=== PATIENT | female | born 1975 | race Caucasian/White ===

== ENCOUNTER 2018-11-03 05:45 | Day surgery (SDC) | payer OTHER ==
[~2018-11-03] VITALS: Ht 162.6 cm; Wt 73.5 kg
--- NOTE | ~2018-11-03 | OR ---
[facility] [address], [place] [address] Draft DATE OF OPERATION: 11/03/2018 SURGEON: Amelia Lino DO PREOPERATIVE DIAGNOSES: 1. Abnormal uterine bleeding. 2. Dysmenorrhea. 3. Adenomyosis. POSTOPERATIVE DIAGNOSES: 1. Abnormal uterine bleeding. 2. Dysmenorrhea. 3. Adenomyosis. PROCEDURES PERFORMED: Total laparoscopic hysterectomy, bilateral salpingectomy, cystoscopy. [employer] PROGRAM TEACHER: Dalton Bai MD. ANESTHESIA: General. ESTIMATED BLOOD LOSS: 50 mL. SPECIMEN: Uterus, bilateral fallopian tubes and cervix. FINDINGS: Normal external genitalia, vagina, and cervix. On laparoscopy, normal right upper quadrant and appendix noted. Normal uterus, tubes, and ovaries. Tubes are status post bilateral tubal ligation. At the end of the case, there was a slight amount of oozing on the right that was made hemostatic. On cystoscopy, normal urethra, bladder and bilateral ureteral jets noted. COMPLICATIONS: None. INDICATIONS: PATIENT NAME: LUTHER NIÑO OPERATIVE REPORT DATE OF : 73 REPORT #: [id number] PHYSICIAN: AMELIA LINO DO PCP: TENISHA SERNA PAC REPORT IS CONFIDENTIAL AND NOT TO BE RELEASED WITHOUT AUTHORIZATION [facility] [address] [place], [place] [address] Draft Ms. Niño is a pleasant 43-year-old female with a history of worsening dysmenorrhea and abnormal uterine bleeding. Endometrial biopsy was normal and Pap smear was normal. Ultrasound suggested adenomyosis. Of note, she has a family history of ovarian cancer and underwent BRCA testing that was negative. Recommended total laparoscopic hysterectomy, bilateral salpingectomy and cystoscopy. Risks, benefits, and alternatives were discussed in detail with the patient. The patient understands and wished to proceed with the procedure. TECHNIQUE: The patient was taken to the operating room. A time-out was performed to confirm correct patient and correct procedure. General anesthesia was adequately established. The patient was prepped and draped in dorsal lithotomy position with feet in Yellofin stirrups. ICPs were on and running and no preoperative heparin was given. Preoperative antibiotics were gentamicin 5 mg/kg and clindamycin 900 since the patient had a penicillin allergy. A Cote catheter was inserted. A weighted speculum was placed in the vagina and the anterior lip of the cervix was grasped with single-tooth tenaculum. The cervix was gently dilated using Hegar dilators. A medium VCare uterine manipulator was placed without difficulty. The surgeon's gloves were changed and attention was turned to the abdomen. The base of the umbilicus was infiltrated with 0.25% Marcaine with epinephrine. A 5 mm stab incision was made with an 11 blade knife. A 5 mm trocar was placed with direct visual entry without complication. Pneumoperitoneum was established easily with low opening pressures noted. Survey of the abdomen and pelvis was performed noting a normal right upper quadrant and appendix. A 5 mm assist port was placed on the left under direct visualization, and an 8 mm expanding assist port was placed on the right without difficulty. Attention was then turned to hysterectomy. The left fallopian tube was grasped at the fimbriated end, elevated and divided along the mesosalpinx using LigaSure device. Good hemostasis was appreciated. The fallopian tube was then delivered through the assist port and sent to Pathology for further evaluation. The utero-ovarian ligament was fulgurated and divided on the left. The round ligament was then fulgurated and divided and the leaves of the broad ligament were divided using the LigaSure device. There were very scant adhesions along the bladder from her prior deliveries and these were brought down easily with excellent visualization. The posterior leaf of the broad ligament was brought down past the uterosacral ligament to the midline. The uterine vessels were then identified and they were fulgurated and divided with good hemostasis appreciated. Attention was turned to the right side where the process was repeated. The right fallopian tube was elevated and divided along the mesosalpinx and delivered. The right utero-ovarian ligament and right round ligament were fulgurated and divided. The leaves of the broad ligament were dissected in the same manner and the bladder was pushed well down below the vaginal cup. A small amount of oozing was noted from the right uterine vessels and they were then fulgurated and divided with good hemostasis appreciated. Once dissection was completed, a Sonicision device was selected and used to perform colpotomy starting at the 6 o'clock position. PATIENT NAME: LUTHER NIÑO OPERATIVE REPORT DATE OF : 73 REPORT #: [id number] PHYSICIAN: AMELIA LINO DO PCP: TENISHA SERNA PAC REPORT IS CONFIDENTIAL AND NOT TO BE RELEASED WITHOUT AUTHORIZATION [facility] [address] [place], [place] [address] Draft The green edge of the cup was identified and colpotomy was completed in circumferential manner using the Sonicision device following the edge of the green cup as a guide. The uterus and cervix were then delivered through the vagina. The vagina was stuffed with a wet lap inside of a glove to maintain pneumoperitoneum. A small amount of oozing was noted from the right uterine artery. This was grasped very carefully with the LigaSure device and fulgurated and bleeding ceased. The colpotomy was then repaired using V-Loc suture with an Endo Stitch device. This was passed just medial to the uterosacral ligament on the right with careful attention to incorporate the vaginal epithelium with each bite. The colpotomy was then closed in a running nonlocked suture. The V-Loc stitch was then fell back to the midline of the colpotomy. Good hemostasis and vaginal support were noted. A small amount of oozing was noted on the right just lateral to the uterosacral ligament. Very careful monopolar spot fulguration was performed after identifying the ureter noted to be well away. Evicel was then applied after good hemostasis was appreciated. The pressure was held for 2 minutes and additional Evicel was applied despite this being completely hemostatic. Pneumoperitoneum was reduced for 2 minutes and then the abdomen was reinsufflated. Again, good hemostasis was appreciated. Pneumoperitoneum was then reduced. The trocar sites repaired with 4-0 Vicryl. Attention was then turned to cystoscopy. The Cote catheter was removed. The 70 degree cystoscope was placed in the urethral meatus and advanced under direct visualization into the bladder. Normal bladder was noted with bilateral ureteral jets quickly seen. The cystoscope was withdrawn after the bladder was drained. The Cote catheter was reinserted. The patient was then taken to PACU in good and stable condition. Sponge, needle, instrument count was correct x2 at the end of procedure. Dr. Bai was present and participated in all portions of procedure. DO ROSALINA Mcginnis/LULU /[id number] Copies: ~ PATIENT NAME: LUTHER NIÑO OPERATIVE REPORT DATE OF : 73 REPORT #: [id number] PHYSICIAN: AMELIA LINO DO PCP: TENISHA SERNA PAC REPORT IS CONFIDENTIAL AND NOT TO BE RELEASED WITHOUT AUTHORIZATION
[~2018-11-03 05:45] MED LIST: ALBENZA200 MG PO; METFORMIN HCL500 M1 PO; NORCO 5-325 TA1 EACH PO; OZEMPIC1 MG/0.75 INJ; SPRINTEC1 EACH PO
--- NOTE | 2018-11-03 09:22 | NUR ---
11/03/18 0922 Floridalma Alvarez 0909- PT ARRIVES TO PACU. AROUSABLE TO STIMULI, DOES NOT FOLLOW COMMANDS AT THIS TIME. RESP EVEN AND UNLABORED. OXYGEN SAT HIGH 90'S TO 100% ON 6L VIA MASK. PT FALLS BACK TO SLEEP WHEN NOT BEING TALKED TO. 09- OXYGEN TITRATED OFF. 09- DR. MENDOZA AT THE BEDSIDE TO TALK WITH THE PT.
--- NOTE | 2018-11-03 10:15 | NUR ---
FAMILY AT BEDSIDE. CALL LIGHT WITHIN REACH. CRACKERS AND ICED WATER GIVEN. DICK BALLOON DEFLATED FOR 10 ML FLUID AND DICK IS DC WNL. PATIENT TOLERATES THAT WELL. 100 ML BRIGHT YELLOW URINE NOTED TO OVERNIGHT DICK BAG. PATIENT IS SITTING UP DRINKING AND TOLERATING THAT WELL.
[2018-11-03] MEDS ORDERED: NORCO 5-325 TA1 EACH PO (11:05)
--- NOTE | 2018-11-03 11:10 | NUR ---
PATIENT UP TO THE BATHROOM WITH SPOUSE AND MY STANDBY. PATIENT AMBULATES WELL AND DENIES DIZZINESS. PATIENT VOIDS 600 ML BRIGHT YELLOW URINE AND AMBULATES BACK TO BED. SCDS IN PLACE. MORE ICE CHIPS GIVEN. PATIENT IS EATING CRACKERS AND TOLERATING THAT WELL. FAMILY REMAINS AT THE BEDSIDE.
--- NOTE | 2018-11-03 12:12 | NUR ---
LE 1105: YOGURT, GRANOLA AND FRUIT ORDERED FROM DIETARY FOR PATIENT. 1212: PATIENT EATS AND TOLERATES THAT WELL.
== END 2018-11-03 12:25 | disposition home or self-care (01) ==
LOC: DS 05:45 → OPS 05:45 → DS 06:45 → OPS 06:45
PROVIDERS: Obstetrics & Gynecology
PROC: 0UT94ZZ Resection of Uterus, Percutaneous Endoscopic Approach (ICD-10-PCS; principal; 2018-11-03 06:45)
PROC: 0UT74ZZ Resection of Bilateral Fallopian Tubes, Percutaneous Endoscopic Approach (ICD-10-PCS; 2018-11-03 06:45)
DX: D25.9 Leiomyoma of uterus, unspecified (principal); N83.8 Other noninflammatory disorders of ovary, fallopian tube and broad ligament; N88.8 Other specified noninflammatory disorders of cervix uteri; N80.9 Endometriosis, unspecified; E11.9 Type 2 diabetes mellitus without complications; F41.9 Anxiety disorder, unspecified; Z88.0 Allergy status to penicillin; Z88.2 Allergy status to sulfonamides
CPT/HCPCS: 00840; J0131; J1100; J1170; J1580; J1885; J2250; J2405; J2550; J2704; J3010; J3490; J7120